=== PATIENT | female | born 1945 | race Caucasian/White ===

== ENCOUNTER 2019-09-17 10:16 | Emergency (ER) | payer MEDICARE, BC, SELFPAY ==
[2019-09-17] VITALS (8 sets, daily range): BP systolic 124–148; BP diastolic 74–88; PULSE 78–88; RESP 14–18; TEMP 36.8–37; O2SAT 96–98
--- NOTE | ~2019-09-17 | CT_ITS ---
EXAMINATION: CT brain wo con DATE: 09/17/2019 11:33 INDICATION: Left-sided numbness. TECHNIQUE: Computed tomography (CT) of the head was performed without intravenous contrast. The mA wa s adjusted according to patient size. Iterative reconstruction technique was employed. The dose-lengt h product was 605.33 mGy-cm. COMPARISON: None FINDINGS: There is a 1.5 cm mass in right frontal lobe with surrounding vasogenic edema. There are fo lake areas of low-attenuation in the right cerebellum and right parietal occipital region. There is no acute ischemic infarct or intracranial hemorrhage. There is mild mass effect on body of right latera l ventricle. The paranasal sinuses are clear. The mastoid air cells are normal. There are likely mijraes ges of ocular lens replacement surgeries. IMPRESSION: 1. 1.5 cm mass in right frontal lobe, consistent with metastatic disease. Focal areas of low-attenuat ion in right cerebellum and right parietal occipital region are suspicious for vasogenic edema from o ccult metastatic disease. Consider brain MRI without and with contrast. Reviewed, dictated and finalized at location A. IMPRESSION: 1. 1.5 cm mass in right frontal lobe, consistent with metastatic disease. Focal areas of low-attenuation in right cerebellum and right parietal occipital sourav on are suspicious for vasogenic edema from occult metastatic disease. Consider brain MRI without and with contrast.
--- NOTE | ~2019-09-17 | XR_ITS ---
EXAMINATION: XR chest 1V portable DATE: 09/17/2019 10:56 INDICATION: Left-sided numbness and weakness. TECHNIQUE: A single frontal view of the chest was obtained. COMPARISON: None. FINDINGS: There is a mass in left lung upper lobe. No pleural effusion or pneumothorax. The heart siz e is normal. IMPRESSION: 1. Mass in left lung upper lobe suspicious for primary bronchogenic carcinoma. Chest CT is recommende d. I called this result to Dr. Parra on 09/17/19 at 11:03 AM. Reviewed, dictated and finalized at location A. IMPRESSION: 1. Mass in left lung upper lobe suspicious for primary bronchogenic carcinoma. Chest CT is recommended. I called this result to Dr. Parra on 09/17/19 at 11:0 3 AM.
--- NOTE | ~2019-09-17 | CT_ITS ---
EXAMINATION:CT chest wo con DATE: 09/17/2019 11:34 INDICATION: Lung mass. TECHNIQUE: Computed tomography (CT) of the chest was performed without intravenous contrast. Automate d exposure control and iterative reconstruction technique were employed. The dose-length product (DLP ) was 136.85 mGy-cm. COMPARISON: Chest single view 09/17/2019 FINDINGS: There is varicose bronchiectasis involving posterior segment right upper lobe with surround ing airspace and groundglass opacities. There is mild peripheral scarring in anterolateral aspect of right lung. There is a 6.5 x 2.8 cm mass involving left upper lobe. There are patchy airspace and pako undglass opacities in left upper lobe and superior segment left lower lobe. No pleural effusion. The heart size is normal. No pericardial effusion. There is kyphosis and moderate spondylosis of thoracic spine. IMPRESSION: 1. Mass in left lung upper lobe, consistent with primary bronchogenic carcinoma. 2. Multifocal lung disease involving the upper lobes and superior segment left lower lobe. These find ings may be atypical pneumonia and/or chronic lung disease. Multifocal bronchioloalveolar cell carcin leydi cannot be excluded. Reviewed, dictated and finalized at location A. IMPRESSION: 1. Mass in left lung upper lobe, consistent with primary bronchogenic carcinoma . 2. Multifocal lung disease involving the upper lobes and superior segment left lower lobe. These findings may be atypical pneumonia and/or chronic lung diseas e. Multifocal bronchioloalveolar cell carcinoma cannot be excluded.
--- NOTE | 2019-09-17 10:23 | ECG_ITS ---
Measurements Intervals [place] Rate: 83 P: 46 [place]: 158 QRS: -22 QRSD: 79 T: 9 QT: 383 QTc: 451 Interpretive Statements SINUS RHYTHM LOW QRS VOLTAGE IN PRECORDIAL LEADS LEFT VENTRICULAR HYPERTROPHY AND ST-T CHANGE BORDERLINE T WAVE ABNORMALITY- ANT/INF LEADS BASELINE ARTIFACT- I, II, III, AVR, AVL, AVF BORDERLINE ECG Electronically Signed On 09-17-2019 12:05:33 CDT by Quique Mai D.O.
[2019-09-17 10:56] LABS: Basophils Percent Auto 0.6 % (0.2-1.2); Eosinophils Absolute Auto 0.1 K/mm3 (0-0.3); Hematocrit 38.9 % (37.0-47.0); Hemoglobin 13.5 g/dL (12.0-15.0); Immature Granulocyte Absolute 0.04 K/mm3 (0.00-0.031); Immature Granulocyte Percent A 0.6 % (0-0.5); Lymphocytes Absolute Auto 1.62 K/mm3 (0.9-3.2); Lymphocytes Percent Auto 23.7 % (18.3-44.2); Mean Corpuscular HGB Conc 34.7 g/dl (32-36); Mean Corpuscular Hemoglobin 31.5 pg (26-34); Mean Corpuscular Volume 90.7 fl (80-100); Mean Platelet Volume 8.7 fl (7.4-10.4); Monocytes Absolute Auto 0.6 K/mm3 (0.1-0.6); Monocytes Percent Auto 8.8 % (2.6-8.5); Neutrophils Absolute Auto 4.5 K/mm3 (1.3-6.7); Neutrophils Percent Auto 65.3 % (45.5-73.1); Platelet Count Result 211 k/mm3 (150-375); Red Blood Count 4.29 M/mm3 (4.2-5.4); Red Cell Distribution Width 13.5 % (11.5-14.5); White Blood Count 6.8 K/mm3 (4.5-10.0)
[2019-09-17 11:06] LABS: Blood Urea Nitrogen 19 mg/dL (7-17); Carbon Dioxide 24 mmol/L (22-30); Chloride 105 mmol/L (98-107); Estimated CRCL calculation 52 ml/min; Estimated Glomerular Filt Rate > 60; Glucose 114 mg/dL (65-105); Potassium 3.6 mmol/L (3.4-5.0); Sodium 139 mmol/L (137-145)
[2019-09-17 11:11] LABS: INR 1.1; Prothrombin Time 14.3 Seconds (11.1-14.7)
[2019-09-17 11:12] LABS: Partial Thromboplastin Time 27.5 SECONDS (22.3-36.8)
--- NOTE | 2019-09-17 11:17 | ED.NEUROSD ---
HPI - Neuro Symptoms/Deficit General Chief Complaint: Neuro Symptoms/Deficit Stated Complaint: Left Side Numbness x 1 week Time Seen by Provider: 09/17/19 10:46 History of Present Illness HPI Narrative: Patient is a 73-year-old female who presents the ER with numbness and tingling to her left upper extremity in her mouth and perceived foot drop on the left side. She reports symptoms in the left arm and leg began 5 days ago and have been intermittent. She feels like they worsen last night. This morning while she was drinking some water she noticed that her left lower lip felt a little bit numb as well. No falls or trauma. No facial droop or dysarthria or word searching. No history of CVA previously. Was referred here by her PCP. Related Data Home Medications Medication Instructions Recorded Confirmed ibandronate [Boniva] 150 mg PO ONCE 09/17/19 09/17/19 Allergies Allergy/AdvReac Type Severity Reaction Status Date / Time No Known Allergies Allergy Verified 09/17/19 11:16 Review of Systems Review of Systems: All systems reviewed & are unremarkable except as noted in HPI and below Constitutional: Constitutional: Denies chills, Denies fever(s) and Denies weakness ENT: Denies nasal congestion and Denies sore throat Cardiovascular: Cardiovascular: Denies chest pain, Denies rapid heart rate and Denies radiating jaw, neck or arm pain Respiratory: Respiratory: Denies cough, Denies dyspnea and Denies wheezing Gastrointestinal: Gastrointestinal: Denies abdominal pain, Denies nausea and Denies vomiting Neurologic: Denies dizziness, Reports focal weakness (Left lower extremity dragging foot) and Reports numbness PMFSH Past Medical History Medical History (Updated 09/17/19 @ 14:57 by Isauro Parra MD) Breast cancer Surgical History Surgical History (Updated 09/17/19 @ 12:11 by Isauro Parra MD) H/O lumpectomy Social History Social History (Updated 09/17/19 @ 12:12 by Isauro Parra MD) Alcohol use details: Drinks white wine Substance use: never Exam Narrative: Exam Narrative: GENERAL: Frail-appearing, well-nourished, and in no acute distress. HEAD: Normocephalic, atraumatic. EYES: PERRL and EOMI. ENT: Mucous membranes moist. CHEST: Clear to auscultation. No respiratory distress. HEART: Regular rate and rhythm. Normal peripheral pulses. ABDOMEN: Soft, nontender, nondistended. EXTREMITIES: Normal range of motion. No edema. SKIN: Warm, dry, no rash. NEURO: Sensation intact in the face and extremities. Cranial nerves II through XII intact. No upper or lower extremity drift. Patient ambulates without deviating to one side or the other. Able to walk on her tiptoes without issue. Negative Romberg. Alert and oriented x3. Course Course Emergency Course: I have spoken with Dr. Lopez at [facility] with oncology who recommends the patient come over to be evaluated. Have also spoken with Dr. Sahni with neurosurgery and Dr. Jennings in the ER. Patient received IV dexamethasone 10 mg as well as IV Keppra 750 mg. I had a very long discussion with the patient and her on multiple occasions about the necessity of transfer as opposed to going home and following up outpatient. They have accepted the fact that patient should go to [facility] for an expedited work-up of her symptoms. Vital Signs Vital signs: Vital Signs Temperature 98.2 F 09/17/19 10:28 Pulse Rate 86 09/17/19 10:28 Respiratory Rate 18 09/17/19 10:28 Blood Pressure 148/78 H 09/17/19 10:28 Pulse Oximetry 97 09/17/19 10:28 Temperature 98.2 F 09/17/19 10:28 Pulse Rate 80 09/17/19 14:37 Respiratory Rate 14 09/17/19 14:37 Blood Pressure 147/86 H 09/17/19 14:37 Pulse Oximetry 98 09/17/19 14:37 MDM - Neuro Symptoms/Deficit Lab Data Result diagrams: 09/17/19 10:48 09/17/19 10:48 Labs: Lab Results 09/17/19 09/17/19 09/17/19 Range/Units 10:48 10:48 10:48 WBC 6.8 (
[2019-09-17 11:18] LABS: Troponin I < 0.012 ng/mL (0.000-0.034)
[2019-09-17] MEDS: ALPRAZolam 0.25 MG TABLET PO (15:11)
[2019-09-17] MEDS: levETIRAcetam IV 750 MG in DEXTROSE 5% 100 ML 430 MG IVPB (15:11)
== END 2019-09-17 18:38 | disposition short-term general hospital (02) ==
PROVIDERS: Emergency Provider Emergency Medicine; PCP Internal Medicine
DX: C79.31 Secondary malignant neoplasm of brain (principal); C34.92 Malignant neoplasm of unspecified part of left bronchus or lung; Z85.3 Personal history of malignant neoplasm of breast; R94.31 Abnormal electrocardiogram [ECG] [EKG]
CPT/HCPCS: 36415; 70450; 71045; 71250; 80048; 84484; 85025; 85610; 85730; 93005; 96365; 96375; 99285; A9270; J1100; J1953

== ENCOUNTER 2020-06-15 21:36 | Emergency (ER) | payer MEDICARE, BC, SELFPAY ==
--- NOTE | ~2020-06-15 | XR_ITS ---
EXAMINATION: XR chest 1V portable INDICATION: Left-sided numbness TECHNIQUE: Portable AP chest at 2232 hours COMPARISON: Prior studies are not currently retrievable on the PACS. FINDINGS: There is a 5 cm left upper lobe mass. A right internal jugular Port-A-Cath ends with its ti p in the distal superior vena cava. The heart size is normal. There is no pleural effusion or pneumot horax. IMPRESSION: 1. Left upper lobe mass consistent with known malignancy. Reviewed, dictated and finalized at location A.
--- NOTE | ~2020-06-15 | CT_ITS ---
EXAMINATION: CT brain wo con INDICATION: Left-sided numbness, history of lung cancer with intracranial metastases COMPARISON: 09/17/2019 TECHNIQUE: Standard unenhanced head CT. The dose-length product (DLP) was 529.67 mGy-cm. The mA was a djusted according to patient size. Iterative reconstruction technique was employed. FINDINGS: There is no acute intraparenchymal hemorrhage. The previously described 15 mm right frontal lobe mass now measures 8 mm. There has been interval decrease in surrounding vasogenic edema in the right frontal lobe. In addition areas of previously described vasogenic edema in the right cerebellum and right parieto-occipital region are no longer evident. No new masses or new areas of abnormal int racranial edema are seen. No evidence of acute infarction. Intracranial calcified cerebral atheroscle rosis is noted. There are no extra-axial collections. Changes in the globes are likely from ocular le ns surgery. The visualized sinuses and mastoid air cells are well aerated. IMPRESSION: 1. Decrease in size of a right frontal lobe mass and decrease in previously described areas of vasoge lori edema, consistent with response to therapy. No acute findings identified. Reviewed, dictated and finalized at location A. IMPRESSION: 1. Decrease in size of a right frontal lobe mass and decrease in previously theresa cribed areas of vasogenic edema, consistent with response to therapy. No acute findings identified.
[2020-06-15 21:55] VITALS: BP 144/71; PULSE 75; RESP 16; TEMP 37.1; O2SAT 100
--- NOTE | 2020-06-15 22:21 | ECG_ITS ---
Measurements Intervals [place] Rate: 60 P: 48 [place]: 161 QRS: 1 QRSD: 95 T: 1 QT: 437 QTc: 438 Interpretive Statements SINUS RHYTHM EARLY PRECORDIAL R/S TRANSITION VOLTAGE CRITERIA FOR LVH MINIMAL Q WAVES- HIGH LATERAL LEADS BORDERLINE T WAVE ABNORMALITY- INFERIOR LEADS BASELINE ARTIFACT- I, II, III, AVR, AVL, AVF, V1-V6 BORDERLINE ECG Electronically Signed On 06-16-2020 7:53:07 CDT by Quique Mai D.O.
--- NOTE | 2020-06-15 22:21 | ED.NEUROSD ---
HPI - Neuro Symptoms/Deficit General Chief Complaint: Neuro Symptoms/Deficit Stated Complaint: sent by PMD for left side face numbness Time Seen by Provider: 06/15/20 22:17 Source: RN notes reviewed History of Present Illness HPI Narrative: Patient presents to emergency department from home for left-sided facial numbness. Patient states symptoms began approximately 3 hours ago and are improving from initial onset. She denies any other neurologic deficit she states that approximately 2 days ago she did feel like her left leg was weaker than her right leg but that has since resolved the patient denies any difficulty speaking and denies any current unilateral weakness. Patient does have a history of lung cancer with metastatic disease to the brain and is followed by oncology at [facility] where she is on immunotherapy with last treatment 4 weeks ago and with radiation to the brain approximately October of last year the patient's last MRI in April 2020 shows interval decrease in size of multiple intracranial metastatic lesions with improvement of the surrounding vasogenic edema. The patient is on prednisone 10 mg daily patient denies any chest pain shortness of breath fever or any other symptom Related Data Home Medications Medication Instructions Recorded Confirmed prednisone 10 mg tablet 10 mg PO DAILY 05/22/20 05/23/20 Allergies Allergy/AdvReac Type Severity Reaction Status Date / Time No Known Allergies Allergy Verified 05/22/20 12:42 Review of Systems Review of Systems: Narrative: Gen.: Denies fevers or chills Eyes: Denies eye pain or visual change ENT: Denies congestion Respiratory: Denies shortness of breath or cough CV: Denies chest pain or palpitations GI: Denies abdominal pain nausea, emesis or diarrhea Musculoskeletal: Denies back pain or muscle pain Neuro: See HPI Skin: Denies rash Except as documented, all other systems reviewed and negative [facility] Past Medical History Medical History Apraxia BMI 20.0-20.9, adult Breast cancer Encounter to establish care Hx of breast cancer Insomnia Loss of appetite Metastatic cancer to brain On emt intermediate drug therapy Surgical History Surgical History H/O lumpectomy Social History Social History (Updated 06/15/20 @ 22:24 by Reyes Monahan DO) Smoking status: Never smoker Substance use: never Exam Narrative: Exam Narrative: APPEARANCE: No acute distress, nontoxic, resting in bed HEENT: Normocephalic, atraumatic, OMM, TMs clear bilaterally EYES: PERRL, EOMI NECK: Supple, nontender, full range of motion without pain, no meningismus RESPIRATORY: No respiratory distress, clear to auscultation bilaterally with no rhonchi wheezing or rales CARDIOVASCULAR: RRR s murmur ABDOMINAL: Soft, nontender, nondistended MUSCULOSKELETAL: Moves all extremities. No clubbing, cyanosis or edema. NEURO: A and O ?3, following commands, speech normal, cranial nerves II through XII grossly intact,muscle strength 5 out of 5 bilateral upper and lower extremities, equal sensation in the bilateral cheeks SKIN:: Warm, dry. Normal Color PSYCHIATRIC: Normal affect/mood Course Course Emergency Course: Discussed with Dr. De La Rosa presentation work-up at this time feels the patient may be discharged to follow-up as an outpatient Discussed with patient results of workup and diagnosis. Discussed need for follow-up with primary care, proper use of medication, and reasons to return to the emergency department. Patient understands and agrees to current treatment plan Vital Signs Vital signs: Vital Signs Temperature 98.7 F 06/15/20 21:55 Pulse Rate 75 06/15/20 21:55 Respiratory Rate 16 06/15/20 21:55 Blood Pressure 144/71 H 06/15/20 21:55 Pulse Oximetry 100 06/15/20 21:55 Temperature 98.7 F 06/15/20 21:55 Pulse Rate 75 06/15/20 21:55 Respiratory Rate 16
[2020-06-15 23:10] LABS: Basophils Percent Auto 0.5 % (0.2-1.2); Eosinophils Absolute Auto 0.3 K/mm3 (0-0.3); Eosinophils Percent Auto 3.3 % (0-4.4); Hematocrit 30.8 % (37.0-47.0); Hemoglobin 10.5 g/dL (12.0-15.0); Immature Granulocyte Absolute 0.07 K/mm3 (0.00-0.031); Immature Granulocyte Percent A 0.9 % (0-0.5); Lymphocytes Absolute Auto 2.42 K/mm3 (0.9-3.2); Lymphocytes Percent Auto 30.9 % (18.3-44.2); Mean Corpuscular HGB Conc 34.1 g/dl (32-36); Mean Corpuscular Hemoglobin 30.7 pg (26-34); Mean Corpuscular Volume 90.1 fl (80-100); Mean Platelet Volume 9.3 fl (7.4-10.4); Monocytes Percent Auto 12.4 % (2.6-8.5); Neutrophils Absolute Auto 4.1 K/mm3 (1.3-6.7); Platelet Count Result 144 k/mm3 (150-375); Red Blood Count 3.42 M/mm3 (4.2-5.4); Red Cell Distribution Width 14.9 % (11.5-14.5); White Blood Count 7.8 K/mm3 (4.5-10.0)
[2020-06-15 23:20] LABS: Partial Thromboplastin Time 27.2 SECONDS (22.3-36.8); Prothrombin Time 14.2 Seconds (11.1-14.7)
[2020-06-15 23:24] LABS: Anion Gap 3 mmol/L (8-16); Blood Urea Nitrogen 16 mg/dL (7-17); Calcium 8.5 mg/dL (8.4-10.2); Carbon Dioxide 28 mmol/L (22-30); Chloride 106 mmol/L (98-107); Estimated CRCL calculation 42 ml/min; Estimated Glomerular Filt Rate > 60; Glucose 88 mg/dL (65-105); Potassium 3.1 mmol/L (3.4-5.0); Sodium 137 mmol/L (137-145)
[2020-06-15 23:36] LABS: Troponin I < 0.012 ng/mL (0.000-0.034)
[2020-06-16] MEDS: POTASSIUM CHLORIDE 20 MEQ TABLET 40 MEQ PO (00:31)
[2020-06-16] MEDS: HEPARIN SOD FLUSH 500 UNITS/5 ML SYRINGE (00:45)
[2020-06-16 00:46] VITALS: BP 136/73; PULSE 72; RESP 18; O2SAT 98
== END 2020-06-16 00:56 | disposition home or self-care (01) ==
PROVIDERS: Emergency Provider Emergency Medicine; PCP Internal Medicine
DX: R20.2 Paresthesia of skin (principal); C34.92 Malignant neoplasm of unspecified part of left bronchus or lung; C79.31 Secondary malignant neoplasm of brain; Z85.3 Personal history of malignant neoplasm of breast; R94.31 Abnormal electrocardiogram [ECG] [EKG]; Z79.899 Other long term (current) drug therapy
CPT/HCPCS: 36415; 70450; 71045; 80048; 84484; 85025; 85610; 85730; 93005; 99284; A9270

== ENCOUNTER 2020-06-18 10:46 | Outpatient (CLI) | payer MEDICARE, BC, SELFPAY ==
--- NOTE | ~2020-06-18 | US_ITS ---
EXAMINATION: US carotid duplex BI DATE: 06/18/2020 11:27 INDICATION: Cerebral infarction. TECHNIQUE: Grayscale, color Doppler, and pulsed Doppler images of the cervical carotid arteries were obtained. The degree of vessel stenosis is placed in one of the following categories: normal, <50%, 5 0-69%, >=70% but less than near-occlusion, near-occlusion, or total occlusion. Note that percent sten osis relative to normal distal artery lumen diameter is indirectly measured from velocity measurement s as described by Bd, et al. Radiology 2003; 229:340-346. COMPARISON: None. FINDINGS: RIGHT: The right common carotid artery (CCA) peak systolic velocity (PSV) is 65 cm/s. The right internal car otid artery (ICA) PSV is 69 cm/s. The right ICA end-diastolic velocity (EDV) is 24 cm/s. The right IC A/CCA PSV ratio is 1.1. Grayscale and color Doppler images yield an estimate of <50% diameter reducti on from plaque in the ICA. There is antegrade flow in the right vertebral artery. LEFT: The left CCA PSV is 51 cm/s. The left ICA PSV is 75 cm/s. The left ICA EDV is 27 cm/s. The left ICA/C CA PSV ratio is 1.5. Grayscale and color Doppler images yield an estimate of <50% diameter reduction from plaque in the ICA. There is antegrade flow in the left vertebral artery. IMPRESSION: 1. <50% stenosis in the right internal carotid artery. 2. <50% stenosis in the left internal carotid artery. Reviewed, dictated and finalized at location A.
== END 2020-06-18 10:47 | disposition home or self-care (01) ==
PROVIDERS: PCP Internal Medicine; Visit Provider Internal Medicine
DX: I63.9 Cerebral infarction, unspecified (principal); I65.23 Occlusion and stenosis of bilateral carotid arteries
CPT/HCPCS: 93880

== ENCOUNTER 2020-09-18 16:20 | Outpatient (CLI) | payer MEDICARE, BC, SELFPAY ==
--- NOTE | ~2020-09-18 | US_ITS ---
EXAMINATION: US venous doppler LE EXAM DATE: 09/18/2020 17:18 INDICATION: R60.9 - Edema, unspecified. TECHNIQUE: Multiple grayscale, color flow and Doppler images of the lower extremity deep venous syste ms bilaterally were obtained and reviewed. There is no prior study for comparison. FINDINGS: Right side: The right common femoral, femoral and profunda veins demonstrate normal color flow, respi ratory variation, augmentation and compressibility. Compressibility, color flow confirmed within the right popliteal, posterior tibial, peroneal, and greater saphenous veins. Small Muse's cyst measur ing 3.5 x 1.7 x 3.2 cm. Left side: The left common femoral, femoral and profunda veins demonstrate normal color flow, respira tory variation, augmentation and compressibility. Compressibility, color flow confirmed within the l eft popliteal, posterior tibial, peroneal, and greater saphenous veins. IMPRESSION: 1. No lower extremity deep venous thrombosis bilaterally. 2. Small right Muse's cyst. Reviewed, dictated and finalized at location A.
== END 2020-09-18 16:21 | disposition home or self-care (01) ==
PROVIDERS: PCP Internal Medicine; Visit Provider Internal Medicine
DX: M79.669 Pain in unspecified lower leg (principal); R60.9 Edema, unspecified; M71.21 Synovial cyst of popliteal space [Baker], right knee
CPT/HCPCS: 93970

== ENCOUNTER 2020-12-11 11:11 | Outpatient (CLI) | payer MEDICARE, BC, SELFPAY ==
[2020-12-13 06:51] LABS: Triiodothyronine T3 Free 2.6 pg/mL (2.3-4.2)
== END 2020-12-11 11:12 | disposition home or self-care (01) ==
LOC: ANHLAB 11:13
PROVIDERS: PCP Internal Medicine; Visit Provider Internal Medicine
DX: R07.89 Other chest pain (principal); G47.00 Insomnia, unspecified; R63.0 Anorexia; Z51.81 Encounter for therapeutic drug level monitoring; Z85.3 Personal history of malignant neoplasm of breast
CPT/HCPCS: 36415; 84439; 84443; 84481

== ENCOUNTER 2021-08-06 11:16 | Inpatient (IN) | payer MEDICARE, BC, SELFPAY ==
[2021-08-06] VITALS (7 sets, daily range): BP systolic 98–125; BP diastolic 58–82; PULSE 60–90; RESP 16–20; TEMP 36.3–36.7; O2SAT 98–100; BMI 10.0
--- NOTE | ~2021-08-06 | CT_ITS ---
EXAMINATION: CT brain wo con DATE: 08/06/2021 12:13 INDICATION: Left hemiparesis. TECHNIQUE: Computed tomography (CT) of the head was performed without intravenous contrast. The mA wa s adjusted according to patient size. Iterative reconstruction technique was employed. The dose-lengt h product was 529.67 mGy-cm. COMPARISON: Head CT 06/15/2020, 09/17/2019 FINDINGS: There are scattered areas of low attenuation in the cerebral white matter, worst in right f rontal lobe. There is focal encephalomalacia in medial posterior right frontal lobe where a mass was seen on 09/17/2019. There is no intracranial hemorrhage, acute infarction, or abnormal intracranial ma ss lesion. The ventricles are normal in size. There is mucosal thickening in the paranasal sinuses. T he mastoid air cells are normal. There are likely changes of ocular lens replacement surgeries. IMPRESSION: 1. Focal encephalomalacia in medial posterior right frontal lobe where a mass was seen on 09/17/2019. 2. Worsened extensive nonspecific cerebral white matter disease, which likely represents treatment ch anges and chronic small vessel ischemic disease. Reviewed, dictated and finalized at location A. IMPRESSION: 1. Focal encephalomalacia in medial posterior right frontal lobe where a mass w as seen on 09/17/2019. 2. Worsened extensive nonspecific cerebral white matter disease, which likely r epresents treatment changes and chronic small vessel ischemic disease.
[2021-08-06 12:21] LABS: Basophils Percent Auto 0.6 % (0.2-1.2); Eosinophils Absolute Auto 0.3 K/mm3 (0-0.3); Eosinophils Percent Auto 4.9 % (0-4.4); Hematocrit 35.9 % (37.0-47.0); Hemoglobin 11.9 g/dL (12.0-15.0); Immature Granulocyte Absolute 0.07 K/mm3 (0.00-0.031); Immature Granulocyte Percent A 1.1 % (0-0.5); Lymphocytes Absolute Auto 0.66 K/mm3 (0.9-3.2); Lymphocytes Percent Auto 10.5 % (18.3-44.2); Mean Corpuscular HGB Conc 33.1 g/dl (32-36); Mean Corpuscular Volume 87.3 fl (80-100); Mean Platelet Volume 8.5 fl (7.4-10.4); Monocytes Absolute Auto 0.7 K/mm3 (0.1-0.6); Monocytes Percent Auto 11.6 % (2.6-8.5); Neutrophils Absolute Auto 4.5 K/mm3 (1.3-6.7); Neutrophils Percent Auto 71.3 % (45.5-73.1); Platelet Count Result 202 k/mm3 (150-375); Red Blood Count 4.11 M/mm3 (4.2-5.4); Red Cell Distribution Width 14.8 % (11.5-14.5); White Blood Count 6.3 K/mm3 (4.5-10.0)
[2021-08-06 12:35] LABS: Anion Gap 7 mmol/L (8-16); Blood Urea Nitrogen 17 mg/dL (7-17); Calcium 8.8 mg/dL (8.4-10.2); Carbon Dioxide 25 mmol/L (22-30); Chloride 107 mmol/L (98-107); Estimated CRCL calculation 42 ml/min; Estimated Glomerular Filt Rate > 60; Glucose 86 mg/dL (65-110); Potassium 3.3 mmol/L (3.4-5.0); Sodium 139 mmol/L (137-145)
--- NOTE | 2021-08-06 13:02 | ED.NEUROSD ---
HPI - Neuro Symptoms/Deficit General Chief Complaint: Neuro Symptoms/Deficit Stated Complaint: left numbness for a month Time Seen by Provider: 08/06/21 11:52 History of Present Illness HPI Narrative: 75-year-old female presenting here with progressive left-sided weakness, she is being treated for brain cancer with chemotherapy at [place], however over the last few weeks, she has been having more more weakness on her left arm and leg to the point where she is unable to walk and cannot care for self at home. Denies any other complaints other than some constipation, no fevers no chills. Related Data Home Medications Medication Instructions Recorded Confirmed dexamethasone 2 mg tablet 2 mg PO DAILY 05/29/21 05/31/21 Allergies Allergy/AdvReac Type Severity Reaction Status Date / Time No Known Allergies Allergy Verified 08/06/21 10:45 Review of Systems Review of Systems: CONST: No fever. HEENT: No sore throat C/V: No chest pain RESP: No cough GI: Constipation : No dysuria. M/S: Left upper and lower extremity weakness SKIN: No rash. NEURO: Left upper and lower extremity weakness PSYCH: [No depression] [facility] Past Medical History Medical History Adult BMI 19-24 kg/sq m Adult BMI <19 kg/sq m Anxiety Apraxia BMI 20.0-20.9, adult Breast cancer Calf pain Constipation Diastolic dysfunction Elevated TSH Encounter for routine adult health examination with abnormal findings Encounter for routine adult health examination without abnormal findings Encounter to establish care Follow up Hx of breast cancer Hypokalemia Hypothyroidism (acquired) Impaired functional mobility, balance, gait, and endurance Insomnia Itchy skin Loss of appetite Metastatic cancer to brain Mini stroke On pill coater drug therapy Pedal edema Weakness Weakness of left side of body Surgical History Surgical History H/O lumpectomy Social History Social History Smoking status: Never smoker Alcohol use details: Drinks white wine Substance use: never Exam Narrative: EXAMINATION OF ORGAN SYSTEMS/BODY AREAS: Constitutional: Vital signs per nursing GENERAL: Lying comfortably in bed, thin HEAD: Normal with no signs of head trauma. EYES: EOMI, conjunctiva normal ENT: Hearing grossly intact LUNGS: Nonlabored breathing. HEART: [Regular rate and rhythm] ABD: [Soft], nontender to palpation EXT: No drift in the left arm but noticeably weaker than the right, barely able to lift left leg against gravity SKIN: [No rashes or lesions.] NEURO: [Alert and oriented x 3. No gross focal sensory or strength deficits.] PSYCH: Normal affect Course Vital Signs Vital signs: Vital Signs Temperature 97.4 F L 08/06/21 11:24 Pulse Rate 70 08/06/21 11:24 Respiratory Rate 20 08/06/21 11:24 Blood Pressure 98/58 L 08/06/21 11:24 Pulse Oximetry 100 08/06/21 11:24 Temperature 98.1 F 08/06/21 11:35 Pulse Rate 68 08/06/21 16:09 Respiratory Rate 16 08/06/21 16:09 Blood Pressure 114/78 08/06/21 16:09 Pulse Oximetry 100 08/06/21 16:09 Oxygen Delivery Room Air 08/06/21 14:03 MDM - Neuro Symptoms/Deficit MDM Narrative Medical decision making narrative: 75-year-old female presenting with progressive left-sided weakness, exam does show weakness in the left side, as well as ataxia, discussed with her physician and with wound care specialist about trying to get her to rehab. However PT and OT have walked her and she is unable to ambulate or even stand without assistance, given this we do feel [facility] facility may be better, however we were unable to find any placement for her at this time. As she cannot go home as she is unable to walk and has been falling at home frequently, we did feels necessary to admit her to the hospital at this time. Discussed with hospitalist.
--- NOTE | 2021-08-06 13:08 | PC.NURSE ---
lunch tray ordered.
[2021-08-06] MEDS: polyethylene glycoL 3350 17 GM POWD.PACK PO (15:22)
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
[2021-08-06] MEDS: POTASSIUM CHLORIDE 20 MEQ PACKET (FOR LIQUID) PO (19:34)
--- NOTE | 2021-08-06 19:59 | ADMGEN ---
This patient, Andreea Ortega, was admitted to Medical Room 347-. Patient/family oriented to hospital policies and general routines including ID bracelet, bed and alarms, visiting hours, pain management, procedures, bathroom and other care routines, personal items, smoking policy, room service/diet, and visiting hours. Information on how to activate the Rapid Response Team has been discussed. Patient/Family are encouraged to report perceived risks to care and to ask questions if they do not understand what they are told or what they should do.
[2021-08-06] MEDS: SIMETHICONE 80 MG TAB.CHEW PO (22:44)
--- NOTE | 2021-08-06 23:18 | PM.IMHP ---
H&P: HPI History of Present Illness Date/Time: Patient was placed observation status for expected length of stay less than 23 hours for management, will plan to re-evaluate tomorrow for improvement. 08/06/21 23:18 Chief Complaint: Falls and weakness Narrative: Ms. Ortega is a 75-year-old female who presented emergency room with complaints of progressive left-sided weakness over the last month. Patient states she is no longer able to walk. Patient states over the last month she has progressed from using a cane to a walker and now has inability to get up on her own. Patient's is at bedside and states that he has been caring her multiple places, but he is unable to do this any longer. Patient states over the last month she has had left upper and lower extremity weakness and numbness. Patient has known lung cancer with metastasis to the brain. Patient was being seen at [facility] and they stated there was nothing else they could do so patient then went to [facility] and began cancer treatments. Patient states that she finished 5 days of oral chemotherapy and is now on 20/3 days off. Patient states that she Continued to become weaker. patient's most recent MRI was noted on 06/18/2021. MRI at that point showed there is an enlarging ring-enhancing metastasis within the right ventral rey currently measuring 1.7 x 1.1 by 0.9 cm. Increasing edema diffusely within the rey, right brachium pontis and right medullary pyramid. Additional metastasis within the peripheral right cerebellum is also larger than on prior exam currently measuring up to 1 cm. Enhancing metastasis within the right superior frontal gyrus is grossly stable compared to 03/21/2021. Additional subcentimeter metastasis with both supratentorial and infratentorial compartments are grossly stable given inherent differences in the technique. Diffuse T2/FLAIR hyperintensity within the supratentorial white matter, may be combination of vasogenic edema associated with right frontal lobe mass as well as more diffuse post treatment effect from previous brain radiation. Patient was brought into the hospital for this increasing weakness in hopes that she could be placed into rehab facility. At this point time case Management has been consulted for further recommendations. Review of Systems Review of Systems: A 12 point review of systems was completed patient all pertinent positive and negative per HPI the remainder are unremarkable. [facility] Past Medical History Medical History Adult BMI 19-24 kg/sq m Adult BMI <19 kg/sq m Anxiety Apraxia BMI 20.0-20.9, adult Breast cancer Calf pain Constipation Diastolic dysfunction Elevated TSH Encounter for routine adult health examination with abnormal findings Encounter for routine adult health examination without abnormal findings Encounter to establish care Follow up Hx of breast cancer Hypokalemia Hypothyroidism (acquired) Impaired functional mobility, balance, gait, and endurance Insomnia Itchy skin Loss of appetite Metastatic cancer to brain Mini stroke On assistant terminal manager drug therapy Pedal edema Weakness Weakness of left side of body Surgical History Surgical History H/O lumpectomy Family History Family History (Updated 08/06/21 @ 21:08 by Christine Choi RN) Father Congestive heart failure Sibling Diabetes mellitus Mother Lymphoma Social History Social History Smoking status: Former smoker Alcohol intake: never Alcohol use details: Drinks white wine Substance use: current Spiritual care concerns: No Meds Home Medications and Allergies Home Medications Medication Instructions Recorded Confirmed Type levothyroxine 88 mcg tablet See Rx Instructions .Route 03/27/21 08/06/21 Rx .COMPLEX #30 tabs dexamethasone 2 mg tablet
[2021-08-07] MEDS: LORazepam (*CRX) 0.5 MG TABLET PO ×2 (00:19→20:19)
[2021-08-07 05:31] VITALS: BP 100/56; PULSE 63; RESP 16; TEMP 36.3; O2SAT 99
[2021-08-07 05:52] LABS: Basophils Percent Auto 0.5 % (0.2-1.2); Eosinophils Absolute Auto 0.4 K/mm3 (0-0.3); Eosinophils Percent Auto 5.3 % (0-4.4); Hematocrit 34.9 % (37.0-47.0); Hemoglobin 11.3 g/dL (12.0-15.0); Immature Granulocyte Absolute 0.08 K/mm3 (0.00-0.031); Immature Granulocyte Percent A 1.2 % (0-0.5); Lymphocytes Absolute Auto 0.75 K/mm3 (0.9-3.2); Lymphocytes Percent Auto 11.4 % (18.3-44.2); Mean Corpuscular HGB Conc 32.4 g/dl (32-36); Mean Corpuscular Hemoglobin 28.5 pg (26-34); Mean Corpuscular Volume 88.1 fl (80-100); Mean Platelet Volume 8.9 fl (7.4-10.4); Monocytes Absolute Auto 0.8 K/mm3 (0.1-0.6); Monocytes Percent Auto 11.5 % (2.6-8.5); Neutrophils Absolute Auto 4.6 K/mm3 (1.3-6.7); Neutrophils Percent Auto 70.1 % (45.5-73.1); Platelet Count Result 169 k/mm3 (150-375); Red Blood Count 3.96 M/mm3 (4.2-5.4); Red Cell Distribution Width 14.6 % (11.5-14.5); White Blood Count 6.6 K/mm3 (4.5-10.0)
[2021-08-07 06:09] LABS: Alanine Aminotransferase 18 U/L (6-35); Albumin Level 3.5 g/dL (3.5-5.1); Alkaline Phosphatase 48 U/L (38-126); Anion Gap 4 mmol/L (8-16); Aspartate Amino Transferase 21 U/L (14-36); Bilirubin,Total 1.1 mg/dL (0.2-1.3); Blood Urea Nitrogen 17 mg/dL (7-17); Calcium 8.5 mg/dL (8.4-10.2); Carbon Dioxide 26 mmol/L (22-30); Chloride 106 mmol/L (98-107); Estimated CRCL calculation 36 ml/min; Estimated Glomerular Filt Rate > 60; Glucose 91 mg/dL (65-110); Magnesium 1.6 mg/dL (1.6-2.3); Potassium 3.7 mmol/L (3.4-5.0); Sodium 136 mmol/L (137-145)
[2021-08-07] MEDS: LEVOTHYROXINE SODIUM 88 MCG TABLET BY MOUTH (06:25)
[2021-08-07] MEDS: ENOXAPARIN 40 MG/0.4 ML SYRINGE SUB-Q (08:30)
[2021-08-07] MEDS: PANTOPRAZOLE 40 MG TABLET PO (08:30)
[2021-08-07] MEDS: DEXAMETHASONE 2 MG TABLET PO (08:30)
[2021-08-07] MEDS: BISACODYL 10 MG SUPPOSITORY RECTAL (12:43)
[2021-08-07 13:06] VITALS: BMI 16.3
--- NOTE | 2021-08-07 13:11 | PCPTNOTE ---
Attempted to see patient for PT, however patient reported she needed the bed haley and declined to work with therapy at this time. Offered commode to patient and patient declined commode and transfers.
--- NOTE | 2021-08-07 14:12 | PCPTNOTE ---
Patient refused treatment this session. Patient reported she has a headache and does not want to work with therapy.
--- NOTE | 2021-08-07 14:58 | PCNSR ---
On 08/07/21, the student, Alexandro Lundberg, provided care and completed [facility] documentation on this patient. I have reviewed the student's documentation and agree with the findings.
[2021-08-07 15:14] VITALS: BP 110/50; PULSE 70; RESP 16; TEMP 36.7; O2SAT 100
[2021-08-07] MEDS: DEXAMETHASONE SOD PHOS INJ 4 MG/ML VIAL IV PUSH ×2 (17:27→23:34)
--- NOTE | 2021-08-07 18:41 | PM.IMPN ---
Progress Note: A&P Assessment and Plan (1) Weakness of left side of body: Code(s): R53.1 - Weakness Status: Acute Assessment and Plan: patient does have signifcant weakness to left upper and lower extremities. She has CT scan evidence of focal encephalomalacia in the medial posterior right frontal lobe where a mass was seen on 09/16/2021. There is no associated intracranial hemorrhage acute infarction or abnormal intracranial mass lesion. Patient has been recently started on experimental drug for metastatic lung cancer. They are hopeful to continue with the treatment. The treatment is 5 on 20 off schedule and she is scheduled to see the oncologist at [facility] this month. She wants to continue rehabilitation however not able to continue going back home due to profound weakness and inability to ambulate. Possibility of a sedan acute edema around the metastatic area possible. MRI on 06/18/2021 revealed enlarging ring enhancing metastasis within the right ventral rey along with increasing edema diffusely within the rey right brachium pontis and right middle of the pyramid. There also additional metastasis within the peripheral right cerebellum which has gone larger measuring up to 1 cm there also enhancing metastasis within the right superior frontal gyrus which are stable. Further sub cm metastasis within both the Septra tentorial and infratentorial compartment which are grossly stable. T2 FLAIR hyperintensity within the supratentorial white matter may be combination of issues and edema associated with right frontal lobe mass as was more diffuse post treatment effect from previous brain radiation. Will initiate Decadron as discussed with her primary care physician to alleviate some of the intracranial pressure and this faces any edema Continue to work with PT OT (2) Hypokalemia: Code(s): E87.6 - Hypokalemia Status: Acute Assessment and Plan: Replaced continue to monitor Subjective Date/time seen: 08/07/21 18:41 Interval history: HPI:Ms. Ortega? is a 75-year-old female who presented emergency room with complaints of progressive left-sided weakness over the last month.? Patient states she is no longer able to walk.? Patient states over the last month she has progressed from using a cane to a walker and now has inability to get up on her own.? Patient's is at bedside and states that he has been caring her multiple places, but he is unable to do this any longer.? Patient states over the last month she has had? left upper and lower extremity weakness and numbness.? Patient has known lung cancer with metastasis to the brain.? Patient was being seen at [facility] and they stated there was nothing else they could do so patient then went to [facility] and began cancer treatments.? Patient states that she finished 5 days of oral chemotherapy and is now on 20/3 days off.? Patient states that she ? Continued to become weaker. patient's most recent MRI was noted on 06/18/2021.? MRI at that point showed there is an enlarging ring-enhancing metastasis within the right ventral rey currently measuring 1.7 x 1.1 by 0.9 cm.? Increasing edema diffusely within the rey, right brachium pontis and right medullary pyramid.? Additional metastasis within the peripheral right cerebellum is also larger than on prior exam currently measuring up to 1 cm.? Enhancing metastasis within the right superior frontal gyrus is grossly stable compared to 03/21/2021.? Additional subcentimeter metastasis with both supratentorial and infratentorial compartments are grossly stable given? inherent differences in the technique.? Diffuse T2/FLAIR hyperintensity within the supratentorial white matter, may be combination of vasogenic edema associated with right frontal lobe mass as well as more diffuse post treatment effect from previous brain radiation. Patient was brought into the hospital for this increasing weakness in
[2021-08-07 20:36] VITALS: BP 116/75; PULSE 65; RESP 16; TEMP 36.6; O2SAT 100
[2021-08-08] MEDS: DEXAMETHASONE SOD PHOS INJ 4 MG/ML VIAL IV PUSH ×4 (05:16→23:03)
[2021-08-08] MEDS: LEVOTHYROXINE SODIUM 88 MCG TABLET BY MOUTH (05:17)
[2021-08-08 05:34] VITALS: BP 102/56; PULSE 60; RESP 16; TEMP 36.5; O2SAT 100
[2021-08-08 06:02] LABS: Basophils Percent Auto 0.3 % (0.2-1.2); Eosinophils Percent Auto 0.1 % (0-4.4); Hematocrit 32.9 % (37.0-47.0); Hemoglobin 11.2 g/dL (12.0-15.0); Immature Granulocyte Absolute 0.09 K/mm3 (0.00-0.031); Immature Granulocyte Percent A 0.7 % (0-0.5); Lymphocytes Absolute Auto 0.77 K/mm3 (0.9-3.2); Lymphocytes Percent Auto 6.3 % (18.3-44.2); Mean Corpuscular Hemoglobin 29.1 pg (26-34); Mean Corpuscular Volume 85.5 fl (80-100); Mean Platelet Volume 9.1 fl (7.4-10.4); Monocytes Absolute Auto 0.8 K/mm3 (0.1-0.6); Monocytes Percent Auto 6.7 % (2.6-8.5); Neutrophils Absolute Auto 10.5 K/mm3 (1.3-6.7); Neutrophils Percent Auto 85.9 % (45.5-73.1); Platelet Count Result 158 k/mm3 (150-375); Red Blood Count 3.85 M/mm3 (4.2-5.4); Red Cell Distribution Width 14.5 % (11.5-14.5); White Blood Count 12.3 K/mm3 (4.5-10.0)
[2021-08-08 06:28] LABS: Alanine Aminotransferase 18 U/L (6-35); Albumin Level 3.3 g/dL (3.5-5.1); Alkaline Phosphatase 48 U/L (38-126); Anion Gap 5 mmol/L (8-16); Aspartate Amino Transferase 19 U/L (14-36); Bilirubin,Total 0.7 mg/dL (0.2-1.3); Blood Urea Nitrogen 18 mg/dL (7-17); Calcium 8.2 mg/dL (8.4-10.2); Carbon Dioxide 24 mmol/L (22-30); Chloride 104 mmol/L (98-107); Estimated CRCL calculation 36 ml/min; Estimated Glomerular Filt Rate > 60; Glucose 138 mg/dL (65-110); Magnesium 1.6 mg/dL (1.6-2.3); Potassium 4.1 mmol/L (3.4-5.0); Sodium 133 mmol/L (137-145)
[2021-08-08] MEDS: ENOXAPARIN 40 MG/0.4 ML SYRINGE SUB-Q (08:12)
[2021-08-08] MEDS: PANTOPRAZOLE 40 MG TABLET PO (08:12)
--- NOTE | 2021-08-08 08:27 | PCPTNOTE ---
Attempted to see patient for PT, however patient declined and asked if therapy can come back later.
--- NOTE | 2021-08-08 13:30 | PCPTNOTE ---
Attempted to see patient for PT, however patient reported she wanted the bed haley, offered to assist patient to commode and patient got very emotional and reported she can't. Gave patient encouragement and reassurance. Patient reported I don't know if they are transferring me to somewhere else or what is going on. Patient very emotional and unable to participate with therapy at this time. RN notified.
[2021-08-08 14:03] VITALS: BP 105/58; PULSE 71; RESP 16; TEMP 36.5; O2SAT 99
[2021-08-08] MEDS: ACETAMINOPHEN 325 MG TABLET 650 MG PO (14:07)
--- NOTE | 2021-08-08 17:01 | PM.IMPN ---
Progress Note: A&P Assessment and Plan (1) Weakness of left side of body: Code(s): R53.1 - Weakness Status: Acute Assessment and Plan: patient does have signifcant weakness to left upper and lower extremities. She has CT scan evidence of focal encephalomalacia in the medial posterior right frontal lobe where a mass was seen on 09/16/2021. There is no associated intracranial hemorrhage acute infarction or abnormal intracranial mass lesion. Patient has been recently started on experimental drug for metastatic lung cancer. They are hopeful to continue with the treatment. The treatment is 5 on 20 off schedule and she is scheduled to see the oncologist at [facility] this month. She wants to continue rehabilitation however not able to continue going back home due to profound weakness and inability to ambulate. Possibility of a sedan acute edema around the metastatic area possible. MRI on 06/18/2021 revealed enlarging ring enhancing metastasis within the right ventral rey along with increasing edema diffusely within the rey right brachium pontis and right middle of the pyramid. There also additional metastasis within the peripheral right cerebellum which has gone larger measuring up to 1 cm there also enhancing metastasis within the right superior frontal gyrus which are stable. Further sub cm metastasis within both the Septra tentorial and infratentorial compartment which are grossly stable. T2 FLAIR hyperintensity within the supratentorial white matter may be combination of issues and edema associated with right frontal lobe mass as was more diffuse post treatment effect from previous brain radiation. Will initiate Decadron as discussed with her primary care physician to alleviate some of the intracranial pressure and this faces any edema Continue to work with PT OT Needs placement Discussed with the patient Continue Decadron as ordered (2) Hypokalemia: Code(s): E87.6 - Hypokalemia Status: Acute Assessment and Plan: Replaced continue to monitor Subjective Date/time seen: 08/08/21 17:01 Interval history: HPI:Ms. Ortega? is a 75-year-old female who presented emergency room with complaints of progressive left-sided weakness over the last month.? Patient states she is no longer able to walk.? Patient states over the last month she has progressed from using a cane to a walker and now has inability to get up on her own.? Patient's is at bedside and states that he has been caring her multiple places, but he is unable to do this any longer.? Patient states over the last month she has had? left upper and lower extremity weakness and numbness.? Patient has known lung cancer with metastasis to the brain.? Patient was being seen at [facility] and they stated there was nothing else they could do so patient then went to [facility] and began cancer treatments.? Patient states that she finished 5 days of oral chemotherapy and is now on 20/3 days off.? Patient states that she ? Continued to become weaker. patient's most recent MRI was noted on 06/18/2021.? MRI at that point showed there is an enlarging ring-enhancing metastasis within the right ventral rey currently measuring 1.7 x 1.1 by 0.9 cm.? Increasing edema diffusely within the rey, right brachium pontis and right medullary pyramid.? Additional metastasis within the peripheral right cerebellum is also larger than on prior exam currently measuring up to 1 cm.? Enhancing metastasis within the right superior frontal gyrus is grossly stable compared to 03/21/2021.? Additional subcentimeter metastasis with both supratentorial and infratentorial compartments are grossly stable given? inherent differences in the technique.? Diffuse T2/FLAIR hyperintensity within the supratentorial white matter, may be combination of vasogenic edema associated with right frontal lobe mass as well as more diffuse post treatment effect from previous brain radiat
[2021-08-08 19:47] VITALS: BP 133/58; PULSE 66; RESP 20; TEMP 36.3; O2SAT 97
[2021-08-08] MEDS: LORazepam (*CRX) 0.5 MG TABLET PO (20:19)
[2021-08-08] MEDS: ZOLPIDEM TARTRATE (*CRX) 5 MG TABLET PO (23:03)
[2021-08-08 23:15] VITALS: O2SAT 99
[2021-08-09 04:21] VITALS: BP 110/66; PULSE 55; RESP 16; TEMP 36.3; O2SAT 100
[2021-08-09] MEDS: DEXAMETHASONE SOD PHOS INJ 4 MG/ML VIAL IV PUSH ×2 (05:50→11:57)
[2021-08-09] MEDS: LEVOTHYROXINE SODIUM 88 MCG TABLET BY MOUTH (05:50)
[2021-08-09] MEDS: ENOXAPARIN 40 MG/0.4 ML SYRINGE SUB-Q (09:11)
[2021-08-09] MEDS: PANTOPRAZOLE 40 MG TABLET PO (09:11)
--- NOTE | 2021-08-09 09:36 | PM.DS ---
DS: Admitting Diagnosis Discharge Date 08/09/2021 Admitting Diagnosis weakness DS: Discharge Diagnosis Discharge Diagnosis (1) Weakness of left side of body: Code(s): R53.1 - Weakness Status: Acute Assessment and Plan: patient has signifcant weakness to left upper and lower extremities. She has CT scan evidence of focal encephalomalacia in the medial posterior right frontal lobe where a mass was seen on 09/16/2021. There is no associated intracranial hemorrhage acute infarction or abnormal intracranial mass lesion. Patient has been recently started on experimental drug for metastatic lung cancer. They are hopeful to continue with the treatment. The treatment is 5 on 20 off schedule and she is scheduled to see the oncologist at [facility] this month. She wants to continue rehabilitation however not able to continue going back home due to profound weakness and inability to ambulate. Possibility of vasogenic edema around the metastatic area possible. MRI on 06/18/2021 revealed enlarging ring enhancing metastasis within the right ventral rey along with increasing edema diffusely within the rey right brachium pontis and right middle of the pyramid. There also additional metastasis within the peripheral right cerebellum which has gone larger measuring up to 1 cm there also enhancing metastasis within the right superior frontal gyrus which are stable. Further sub cm metastasis within both the Septra tentorial and infratentorial compartment which are grossly stable. T2 FLAIR hyperintensity within the supratentorial white matter may be combination of issues and edema associated with right frontal lobe mass as was more diffuse post treatment effect from previous brain radiation. she was initiated on increased dose of Decadron as discussed with her primary care physician to alleviate some of the intracranial pressure and vasogenic edema. Decadron was lowered to 4 mg t.i.d. at the time of discharge. This will need to be tapered down to lowest effective dose as delineated by his PCP and/or oncologist. Continue to work with PT OT Needs placement . Care coordination arrange for transfer to SNF in [place]. Discussed with the patient and PCP at the time of discharge (2) Hypokalemia: Code(s): E87.6 - Hypokalemia Status: Acute Assessment and Plan: Replaced continue to monitor DS: Summary Hospital Course Hospital Course: see above Time Spent with Patient Time attestation: Total time spent providing and/or coordinating discharge services: 45 minutes Exam Narrative: Constitutional: Patient Is a 75-year-old cachectic female who is in no acute distress. Patient is alert and oriented x3 HEENT: Moist mucous membranes. No scleral icterus. No lymphadenopathy. Neck: No carotid bruits noted no JVD noted Lungs: Lung sounds are clear to auscultation bilaterally. No accessory muscle use. No rhonchi, rales, or wheezes noted. Cardiovascular: Apical pulse is regular rate and rhythm. S1-S2 noted, no S3 or S4 noted. No gallops, murmurs, or rubs noted. Abdomen: Soft, round, and nontender. No palpable masses. Extremities: No edema. Nontender. Skin: No rashes or lesions. Warm and dry. patient has multiple bandages noted to left ragland area Neurological: patient has significant motor weakness still left upper and lower extremity. Psychiatric: emotional crying at times DS: Data Imaging Radiologist's impression: ITS Impressions Head CT 08/06/21 12:14 IMPRESSION: 1. Focal encephalomalacia in medial posterior right frontal lobe where a mass was seen on 09/17/2019. 2. Worsened extensive nonspecific cerebral white matter disease, which likely represents treatment changes and chronic small vessel ischemic disease. Discharge Plan Discharge Attending physician on discharge: Tony Sen Discharging Clinician: Tony Sen Anticipated Discharge Date/Time:
[2021-08-09] MEDS: LORazepam (*CRX) 0.5 MG TABLET PO (09:50)
[2021-08-09 11:21] LABS: EDCOVIDSCREEN Negative (Negative)
--- NOTE | 2021-08-09 12:17 | PCNFU ---
Nutrition Follow-Up Complete: Inadequate oral intake related to decreased appetite as evidenced by reported wt loss of 10 lbs in 2-3 week. Goal: Have pt eating 75% or more of meals and finish ensure compact BID. - pt is not meeting goal will continue current goal. Pt current nutrition is regular diet. Last recorded weight is stable. Bowel Motility: +BM (08/09/21) Labs Reviewed: Hgb 11.2, Hct 32.9, Alb 3.3, Na 133, BUN 18, Glu 138 Meds Noted: Protonix, mylicon Skin: Dry around legs Additional Notes: Pt is on a regular diet with glucera compact BID (providing 220 kcal with 9gm protein each). Pt reports poor appetite, oral intake around 55%, and is not finishing glucerna compact shakes. Agree with diet orders. Monitor changes in wt and % oral intake every 5 days.
--- NOTE | 2021-08-09 13:22 | PCNSR ---
On 08/09/21, the student, Alexandro Lundberg, provided care and completed [facility] documentation on this patient. I have reviewed the student's documentation and agree with the findings.
== END 2021-08-09 12:37 | DRG 55 ==
LOC: ANHED 12:00 → ANH3MED 18:55
PROVIDERS: Nurse Practitioner Adult Health; Admitting Provider Family Medicine; Emergency Provider Emergency Medicine; PCP Internal Medicine; Visit Provider Internal Medicine
DX: C79.31 Secondary malignant neoplasm of brain (principal); C34.90 Malignant neoplasm of unspecified part of unspecified bronchus or lung; R53.1 Weakness; R27.0 Ataxia, unspecified; R29.6 Repeated falls; E87.6 Hypokalemia; E03.9 Hypothyroidism, unspecified; Z20.822 Contact with and (suspected) exposure to COVID-19; Z79.899 Other long term (current) drug therapy; Z85.3 Personal history of malignant neoplasm of breast; Z86.73 Personal history of transient ischemic attack (TIA), and cerebral infarction without residual deficits; Z87.891 Personal history of nicotine dependence
CPT/HCPCS: 36415; 70450; 80048; 80053; 83735; 85025; 87426; 96372; 96374; 97162; 97166; 99285; A9270; C9803; G0378; J1100; J1650; J8540